=== PATIENT | female | born 1960 | race Caucasian/White ===

== ENCOUNTER 2017-05-29 10:50 | Outpatient (CLI) | payer OTHER | END 2017-05-29 10:51 | disposition home or self-care (01) | LOC: BICRAD 10:50 | PROVIDERS: ATTEND Family Medicine | DX: M54.5 Low back pain (principal); M54.2 Cervicalgia; M47.896 Other spondylosis, lumbar region; M41.85 Other forms of scoliosis, thoracolumbar region; M47.892 Other spondylosis, cervical region | CPT/HCPCS: 72040; 72100 ==

== ENCOUNTER 2017-11-15 12:38 | Outpatient (CLI) | payer OTHER | END 2017-11-15 12:39 | disposition home or self-care (01) | LOC: BICMAMMO 12:38 | PROVIDERS: ATTEND Family Medicine | DX: Z12.31 Encounter for screening mammogram for malignant neoplasm of breast (principal) | CPT/HCPCS: 77063; 77067 ==

== ENCOUNTER 2018-03-04 06:47 | Outpatient (CLI) | payer OTHER ==
--- NOTE | 2018-03-04 08:35 | ULT ---
GALLBLADDER ULTRASOUND: HISTORY: Abdominal pain. Right upper quadrant pain. COMPARISON: None. TECHNIQUE: Utilizing a multihertz transducer, sonographic imaging of the right upper quadrant is performed in th e longitudinal transverse plane. FINDINGS: Suboptimal evaluation of the pancreas. Visualized IVC has a normal appearance. Visualized hepatic p arenchyma has a normal echotexture. No hepatic masses or intrahepatic biliary dilatation. Contour o f the hepatic margin is maintained. Right hepatic lobe measures 17.4 cm. Main portal vein is patent. Appropriate directional flow. Common bile duct diameter is 0.5 cm. No sonographic evidence of cholelithiasis, gallbladder wall thickening, or pericholecystic fluid. Ne gative Casas's sign. The right kidney has a normal cortical echotexture. No hydronephrosis. The right kidney measures 9. 8 x 4.5 x 4.6 cm. IMPRESSION: No sonographic evidence of cholelithiasis or cholecystitis. POS: [facility]
== END 2018-03-04 06:48 | disposition home or self-care (01) ==
LOC: BICULT 06:47
PROVIDERS: ATTEND Family Medicine
DX: R10.11 Right upper quadrant pain (principal)
CPT/HCPCS: 76705

== ENCOUNTER 2018-12-02 11:46 | Outpatient (CLI) | payer OTHER ==
--- NOTE | 2018-12-02 14:01 | MMO ---
Bilateral MAMMO Bilat Screen [facility]. CLINICAL HISTORY: Patient is 58 years old and is seen for screening. The patient has no family history of breast cancer. The patient has no personal history of cancer. VIEWS: The views performed were: bilateral craniocaudal with tomosynthesis and bilateral mediolateral oblique with tomosynthesis. FILMS COMPARED: The present examination has been compared to prior imaging studies performed at [place] on 11/15/2017. MAMMOGRAM FINDINGS: There are scattered fibroglandular densities. Nodularity is stable. There are no suspicious masses, suspicious calcifications, or new areas of architectural distortion. IMPRESSION: THERE IS NO MAMMOGRAPHIC EVIDENCE OF MALIGNANCY. A ROUTINE FOLLOW-UP MAMMOGRAM IN 1 YEAR IS RECOMMENDED. THE RESULTS OF THIS EXAM WERE SENT TO THE PATIENT. ACR BI-RADS Category 2 - Benign finding MAMMOGRAPHY NOTE: 1. A negative mammogram report should not delay a biopsy if a dominant of clinically suspicious mass is present. 2. Approximately 10% to 15% of breast cancers are not detected by mammography. 3. Adenosis and dense breasts may obscure an underlying neoplasm. Reported by: NORMA ESCOBEDO MD Electonically Signed: [id number]
== END 2018-12-02 11:47 | disposition home or self-care (01) ==
LOC: BICMAMMO 11:46
PROVIDERS: ATTEND Family Medicine
DX: Z12.31 Encounter for screening mammogram for malignant neoplasm of breast (principal)
CPT/HCPCS: 77063; 77067

== ENCOUNTER 2019-12-17 09:34 | Outpatient (CLI) | payer OTHER ==
--- NOTE | 2019-12-17 11:54 | MMO ---
Bilateral MAMMO Bilat Screen [facility]. CLINICAL HISTORY: Patient is 59 years old and is seen for screening. The patient has no family history of breast cancer. The patient has no personal history of cancer. VIEWS: The views performed were: bilateral craniocaudal with tomosynthesis and bilateral mediolateral oblique with tomosynthesis. FILMS COMPARED: The present examination has been compared to prior imaging studies performed at [facility] on 11/15/2017 and 12/02/2018. This study has been interpreted with the assistance of computer-aided detection. MAMMOGRAM FINDINGS: There are scattered fibroglandular densities. Nodularity is stable. There are no suspicious masses, suspicious calcifications, or new areas of architectural distortion. IMPRESSION: THERE IS NO MAMMOGRAPHIC EVIDENCE OF MALIGNANCY. A ROUTINE FOLLOW-UP MAMMOGRAM IN 1 YEAR IS RECOMMENDED. THE RESULTS OF THIS EXAM WERE SENT TO THE PATIENT. ACR BI-RADS Category 2 - Benign finding MAMMOGRAPHY NOTE: 1. A negative mammogram report should not delay a biopsy if a dominant of clinically suspicious mass is present. 2. Approximately 10% to 15% of breast cancers are not detected by mammography. 3. Adenosis and dense breasts may obscure an underlying neoplasm. Reported by: NORMA ESCOBEDO MD Electonically Signed: [id number]
== END 2019-12-17 09:35 | disposition home or self-care (01) ==
LOC: BICMAMMO 09:34
PROVIDERS: ATTEND Family Medicine
DX: Z12.31 Encounter for screening mammogram for malignant neoplasm of breast (principal)
CPT/HCPCS: 77063; 77067